=== PATIENT | female | born 1990 | race Asian ===

== ENCOUNTER 2023-09-11 22:15 | Emergency (ER) | payer OTHER, SELFPAY ==
[2023-09-11 22:18] VITALS: BP 120/54
--- NOTE | 2023-09-11 23:37 | ED.GENMED ---
History of Present Illness
General
Chief Complaint: Ear Problem
Source: patient and spouse
Exam Limitations: none
Time Seen by Provider: 09/11/23 23:23
Nursing documentation reviewed up to this point in time: agreed with
Travel History
Have you had any contact with someone who has COVID-19?: No
Do you have any symptoms of coronavirus? Fever > 100 degrees, chills, cough, shortness of breath, sore throat, loss of taste or smell, muscle aches, or headache?: No
History of Present Illness
History of Present Illness:
32-year-old female presents to the emergency department due to right ear pain that began earlier today. She was going to take ibuprofen, but came to the emergency department. She denies any fevers. No aggravating relieving factors. She is
currently breast-feeding.
Past History
Past History
ED Past Medical History: None
ED Past Surgical History: Gynecological (uterine polyp)
Social History
Tobacco: Non-smoker
Alcohol: None
Drug: None
Personal:
Living: with family
Review of Systems
Review of Systems
Allergies reviewed?: Yes
All Other Systems: Not applicable
Constitutional: Reports no symptoms
EENT: Reports sore throat and other (Right ear pain)
Respiratory: Reports no symptoms
Cardiac: Reports no symptoms
ABD/GI: Reports no symptoms
: Reports no symptoms
Musculoskeletal: Reports no symptoms
Skin: Reports no symptoms
Neurological: Reports no symptoms
Endocrine: Reports no symptoms
Hematologic/Lymphatic: Reports no symptoms
Psychiatric: Reports no symptoms
Phy Exam
Physical Exam
Physical Exam:
Physical Exam
General: no apparent distress, not acutely ill
Neck: supple. no meningeal signs. normal posterior pharynx
Heart: s1/s2 regular rate and rhythm, no murmur. equal radial
pulses.
HEENT: Pupils equal round reactive to light, EOMI, right TM erythematous
Lungs: no acute respiratory distress. clear bilaterally
Neuro: alert and oriented. no focal neurological deficits cranial nerves II through XII intact
Skin: no rash
Psychiatric: well kept. interactive and cooperative
Extremities: no edema.
Course
Orders/Labs/Results
Orders:
Orders
09/11/23 23:34
Rapid Strep Group A Urgent
ROSELINE Source: Throat/Pharynx
Specimen Description:
Amoxicillin [Amoxil] 500 mg PO NOW STA
Vital Signs
Initial and Last Documented VS:
Initial Vital Signs
Temp Pulse Resp BP Pulse Ox
97.4 F 82 18 120/54 100
09/11/23 22:18 09/11/23 22:18 09/11/23 22:18 09/11/23 22:18 09/11/23 22:18
Last Documented Vital Signs
Temp Pulse Resp BP Pulse Ox
97.4 F 82 18 120/54 100
09/11/23 22:18 09/11/23 22:18 09/11/23 22:18 09/11/23 22:18 09/11/23 22:18
MDM/Problems Addressed
Differential Diagnosis Includes:
Otitis externa, otitis media
MDM/Problems Addressed:
32-year-old female with right otitis media. Strep drawn, but will treat with Augmentin. Follow-up with primary care. Return precautions given.
Chronic conditions affecting care: Other (Breast-feeding)
*Pulse Oximetry
Patient hypoxic: no
*EKG
Interpreted by ED Provider?: NA
*Cobol Developer Interpretation
Rate: Cobol Developer- N/A
*Critical Care Note
Total Time (30-74mins, 75-104mins- exclusive of procedures): Not Applicable
Patient Management
Social determinants of health affecting care: Living situation
Escalation/DeEscalation of care consider admission/obs:
admit not indicated
ED Attending Note
-
Portions of this chart may have been created with voice recognition software.� Occasional wrong word or��sound alike� substitutions may have occurred due to the inherent limitations of voice recognition software.
Discharge Plan
Departure
Patient Disposition: Home (Routine Discharge)
Date of Disposition: 09/11/23
Time of Disposition: 23:43
Patient with high blood pressure during this ER visit?: No
Condition: Good
Discharge Problem:
Acute otitis media, right
Instructions: Ear Infections (Otitis Media) in Adults (DC)
Prescriptions:
New
amoxicillin-pot clavulanate 875-125 mg tablet
1 tab PO BID Qty: 14 0RF
No Action
prenat.vits,sandra,drf-pnam-uvwfl Tablet
1 tab PO DAILY
acetaminophen 325 mg Tablet
650 mg PO Q4HPRN PRN (Reason: mild pain) Qty: 0 0RF
ibuprofen 600 mg Tablet
600 mg PO Q4HPRN PRN (Reason: moderate pain/cramps) Qty: 0 0RF
Referrals:
NONE,* [Family Provider] -
Interventions
Interventions:
*Risk Screen - Suicide Last Done: 09/11/23 23:17
*General Assessment Last Done: 09/11/23 23:17
*Neglect/Abuse Screening Last Done: 09/11/23 23:17
*ED COVID-19 Vaccine History Last Done: 09/11/23 23:17
[2023-09-11] MEDS: MOTRIN 600 MG PO (23:51)
[2023-09-11] MEDS: AUGMENTIN 875 MG/125 MG 1 TABLET PO (23:52)
[2023-09-12 00:08] VITALS: BP 124/87
[2023-09-12 00:09] VITALS: BP 129/87
== END 2023-09-12 00:10 | disposition home or self-care (01) ==
LOC: EMR 22:15
PROVIDERS: EMERGENCY PHYSICIAN Emergency Medicine
DX: H66.91 Otitis media, unspecified, right ear (principal)
CPT/HCPCS: 99283; 87070; 87880

== ENCOUNTER → 2023-12-22 08:33 | Outpatient (REF) | payer OTHER, SELFPAY | LOC: RCS 08:33 | PROVIDERS: ATTENDING PHYSICIAN Physician Assistant | DX: I49.9 Cardiac arrhythmia, unspecified (principal) | CPT/HCPCS: 93225; 93226 ==

== ENCOUNTER → 2024-01-06 07:10 | Outpatient (REF) | payer OTHER, SELFPAY | LOC: RCS 07:10 | PROVIDERS: ATTENDING PHYSICIAN Physician Assistant | DX: I49.9 Cardiac arrhythmia, unspecified (principal) | CPT/HCPCS: 93306 ==